=== PATIENT | female | born 1975 | race Caucasian/White ===

== ENCOUNTER 2018-10-17 13:34 | Emergency (ER) | payer MEDICAID ==
[~2018-10-17] VITALS: Ht 167.6 cm; Wt 94.5 kg
[~2018-10-17 13:34] MED LIST: CLIN300C85 PO; COU1T PO; COU5T PO; CYCL-1 PO; FURO20TA4 PO; GABA-341 PO; HYDR-4383 PO; PARO-44 PO
[2018-10-17 15:36] LABS: INR 1.1 INR; PARTIAL THROMBOPLASTIN TIME 25 SECONDS (22-32); PROTHROMBIN TIME 10.8 SECONDS (9.0-12.0)
[2018-10-17 15:37] LABS: BASOPHILS % (AUTO) 0.4 % (0-1); EOSINOPHILS # (AUTO) 0.2 X10'3 (0-0.9); EOSINOPHILS % (AUTO) 1.9 % (0-6); HEMATOCRIT 42.8 % (35.0-45.0); HEMOGLOBIN 14.2 g/dl (12.0-16.0); LYMPHOCYTES # (AUTO) 2.6 X10'3 (1.1-4.8); LYMPHOCYTES % (AUTO) 31.7 % (21-51); MEAN CORPUSCULAR HGB CONC 33.3 g/dL (33.0-36.5); MEAN CORPUSCULAR VOLUME 96.1 FL (78-98); MEAN PLATELET VOLUME 9.5 FL (7.4-10.4); MONOCYTES # (AUTO) 0.4 X10'3 (0-0.9); MONOCYTES % (AUTO) 4.5 % (2-12); NEUTROPHILS # (AUTO) 4.9 X10'3 (1.8-7.7); NEUTROPHILS % (AUTO) 61.5 % (42-75); PLATELET COUNT 227 X10'3 (140-440); RED BLOOD COUNT 4.45 X10'6 (4.20-5.60); RED CELL DISTRIBUTION WIDTH 13.9 % (11.5-14.5); WHITE BLOOD COUNT 8.1 X10'3 (4.5-11.0)
[2018-10-17 15:40] LABS: ALANINE AMINOTRANSFERASE 14 U/L (12-78); ALBUMIN 3.2 G/DL (3.4-5.0); ALBUMIN/GLOBULIN RATIO 0.9 (1.1-1.5); ALKALINE PHOSPHATASE 76 IU/L (46-116); ANION GAP 10 (8-16); ASPARTATE AMINO TRANSFERASE 15 U/L (10-37); BILIRUBIN,TOTAL 0.3 MG/DL (0.1-1.0); BLOOD UREA NITROGEN 8 MG/DL (7-18); BUN/CREATININE RATIO 10.5 (6.6-38.0); CALCIUM 8.4 MG/DL (8.5-10.1); CHLORIDE 106 MMOL/L (99-107); CREATININE 0.76 MG/DL (0.40-0.90); GLUCOSE 111 MG/DL (70-104); POTASSIUM 3.7 MMOL/L (3.5-5.1); SODIUM 141 MMOL/L (135-145); TOTAL CARBON DIOXIDE 25.3 MMOL/L (24-32); TOTAL PROTEIN 6.7 G/DL (6.4-8.2); eGFR 83 ML/MIN
[2018-10-17] MEDS ORDERED: iohexol 350MG/ML 100ml bottle IV ONE (15:47)
[2018-10-17] MEDS ORDERED: acetaminophen 325mg tablet PO ONE ×2 (16:25→17:45)
[2018-10-17] MEDS ORDERED: APIX5TAB3 PO (17:44)
[2018-10-17] MEDS ORDERED: traMADol 50MG tablet PO STA (18:27)
--- NOTE | 2018-10-17 18:27 | NUR ---
Pt requested pain med, "like tramadol" prior to leaving, Dr Ronquillo said that was OK. So ordered
[2018-10-17 18:36] VITALS: BP 119/81
== END 2018-10-17 18:37 | disposition home or self-care (01) ==
LOC: ER 13:35
DX: M79.604 Pain in right leg (principal); M79.605 Pain in left leg; R07.89 Other chest pain; R06.02 Shortness of breath; G89.29 Other chronic pain; Z88.0 Allergy status to penicillin; Z91.040 Latex allergy status; Z79.899 Other long term (current) drug therapy; Z79.01 Long term (current) use of anticoagulants; Z86.718 Personal history of other venous thrombosis and embolism; Z56.0 Unemployment, unspecified; Z98.890 Other specified postprocedural states
CPT/HCPCS: 36415; 71045; 71275; 80053; 83880; 84484; 85025; 85610; 85730; 93005; 93970; 99284; Q9967

== ENCOUNTER 2018-12-18 23:11 | Emergency (ER) | payer MEDICAID ==
[~2018-12-18] VITALS: Ht 167.6 cm; Wt 88.3 kg
[~2018-12-18 23:11] MED LIST changes: +APIX5TAB3 PO; +CLIN-96 PO; -CLIN300C85 PO
[2018-12-18 23:15] VITALS: BP 131/77
[2018-12-18] MEDS ORDERED: orphenadrine citrate 60mg/2ml inj. IM ONE (23:40)
[2018-12-18] MEDS ORDERED: HYDR-4353 PO (23:40)
[2018-12-18] MEDS ORDERED: HYDROcodone/acetaminophen 10/325mg tab PO ONE (23:40)
== END 2018-12-19 00:28 | disposition home or self-care (01) ==
LOC: ER 23:13
DX: S13.4XXA Sprain of ligaments of cervical spine, initial encounter (principal); S29.012A Strain of muscle and tendon of back wall of thorax, initial encounter; G89.29 Other chronic pain; Z86.718 Personal history of other venous thrombosis and embolism; Z85.3 Personal history of malignant neoplasm of breast; Z98.890 Other specified postprocedural states; Z56.0 Unemployment, unspecified; Z80.0 Family history of malignant neoplasm of digestive organs; Z91.040 Latex allergy status; Z79.01 Long term (current) use of anticoagulants; Z79.899 Other long term (current) drug therapy; V43.92XA Unspecified car occupant injured in collision with other type car in traffic accident, initial encounter; Y93.89 Activity, other specified; Y92.488 Other paved roadways as the place of occurrence of the external cause; Y99.8 Other external cause status
CPT/HCPCS: 96372; 99283; J2360

== ENCOUNTER 2019-04-28 21:54 | Emergency (ER) | payer MEDICAID ==
[~2019-04-28] VITALS: Ht 165.1 cm; Wt 96.4 kg
[2019-04-28 21:56] VITALS: BP 140/75
[2019-04-28] MEDS ORDERED: HYDR-4353 PO (23:04)
[2019-04-28] MEDS ORDERED: CLIN300C54 PO (23:04)
== END 2019-04-28 23:16 | disposition home or self-care (01) ==
LOC: ER 21:55
DX: T81.49XA Infection following a procedure, other surgical site, initial encounter (principal); N61.0 Mastitis without abscess; G89.29 Other chronic pain; F17.200 Nicotine dependence, unspecified, uncomplicated; Z56.0 Unemployment, unspecified; Z98.890 Other specified postprocedural states; Z86.718 Personal history of other venous thrombosis and embolism; Z88.0 Allergy status to penicillin; Z91.040 Latex allergy status; Z79.899 Other long term (current) drug therapy; Z79.01 Long term (current) use of anticoagulants; Y92.89 Other specified places as the place of occurrence of the external cause
CPT/HCPCS: 99283

== ENCOUNTER 2019-08-04 15:52 | Emergency (ER) | payer MEDICAID ==
[~2019-08-04] VITALS: Ht 167.6 cm; Wt 96.4 kg
[~2019-08-04 15:52] MED LIST changes: +CLIN-90 PO; -CLIN-96 PO
[2019-08-04 16:30] VITALS: BP 121/77
[2019-08-04] MEDS ORDERED: predniSONE 20 mg tablet PO ONE (17:45)
[2019-08-04] MEDS ORDERED: PRED20TA PO (17:51)
[2019-08-04] MEDS ORDERED: FAMO-128 PO (17:51)
== END 2019-08-04 18:03 | disposition home or self-care (01) ==
LOC: ER 15:52
DX: T78.40XA Allergy, unspecified, initial encounter (principal); G89.29 Other chronic pain; F31.9 Bipolar disorder, unspecified; F20.9 Schizophrenia, unspecified; Z86.718 Personal history of other venous thrombosis and embolism; Z98.890 Other specified postprocedural states; Z56.0 Unemployment, unspecified; Z88.0 Allergy status to penicillin; Z91.040 Latex allergy status; Z79.01 Long term (current) use of anticoagulants; Z79.899 Other long term (current) drug therapy; X58.XXXA Exposure to other specified factors, initial encounter; Y93.89 Activity, other specified; Y92.89 Other specified places as the place of occurrence of the external cause; Y99.8 Other external cause status
CPT/HCPCS: 99283; J7512

== ENCOUNTER 2025-04-06 15:18 | Outpatient (CLI) | payer MEDICAID ==
[~2025-04-06 15:18] MED LIST changes: +CLIN-224 PO; -CLIN-90 PO; -COU5T PO; +FAMO-128 PO; +WARF-113 PO
--- NOTE | 2025-04-06 17:25 | RADIOLOGY REPORT ---
PROCEDURE: MR MRI C SPINE INDICATION: CERVICALGIA EXAM DATE: 04/06/2025 03:32 PM COMPARISON: None TECHNIQUE: MRI cervical spine without intravenous contrast. FINDINGS: Grade 1 anterolisthesis of C7 on T1. There are degenerative endplate changes with anterior osteophy saul mid to lower cervical levels. The visualized posterior fossa and craniocervical junction are inta ct. The intrinsic cervical cord signal appears intact. There is no prevertebral soft tissue swellin g. The visualized paraspinal soft tissues are otherwise unremarkable. The following axial levels are detailed below: C2-C3: Mild posterior disc osteophyte complex complicated by facet arthropathy associated with mild to moderate bilateral neural foraminal stenosis. No significant central canal stenosis. C3-C4: Mild posterior disc osteophyte complex complicated by facet arthropathy associated with mild to moderate bilateral neural foraminal stenosis. No significant central canal stenosis. C4-C5: Mild posterior disc bulge narrowing the central canal to 9 mm. No significant neural forami nal stenosis. C5-C6: Mild posterior disc osteophyte complex complicated by facet arthropathy associated with mild to moderate left neural foraminal stenosis. No significant central canal stenosis. C6-C7: Mild posterior disc osteophyte complex complicated by facet arthropathy associated with mild to moderate bilateral neural foraminal stenosis. No significant central canal stenosis. C7-T1: Mild posterior disc osteophyte complex complicated by facet arthropathy associated with mild to moderate left neural foraminal stenosis. No significant central canal stenosis. IMPRESSION: 1. Multilevel degenerative disease. Mild central canal stenosis C4-Neural foraminal stenosis as abov e. Grade 1 anterolisthesis of C7 on T1. 2. Intact cervical cord signal. No evidence of cord compression. HS:Y
== END 2025-04-06 23:59 | disposition home or self-care (01) ==
LOC: MRI02 15:18
PROVIDERS: ATTEND Nurse Practitioner Family
DX: M50.321 Other cervical disc degeneration at C4-C5 level (principal); M47.813 Spondylosis without myelopathy or radiculopathy, cervicothoracic region; M48.03 Spinal stenosis, cervicothoracic region; M43.13 Spondylolisthesis, cervicothoracic region; M25.78 Osteophyte, vertebrae; R20.2 Paresthesia of skin
CPT/HCPCS: 72141